=== PATIENT | female | born 1970 | race Caucasian/White ===

== ENCOUNTER 2019-06-28 23:03 | Emergency (ER) | payer BC, SELFPAY ==
--- NOTE | 2019-06-28 23:13 | ECG_ITS ---
Measurements Intervals [place]kins Rate: 69 P: 66 ID: [id number] QRS: 75 QRSD: 80 T: 61 QT: 402 QTc: 433 Interpretive Statements SINUS RHYTHM MINIMAL Q WAVES- INFERIOR LEADS BASELINE ARTIFACT- II, III, AVF BORDERLINE ECG Electronically Signed On 06-29-2019 7:03:47 [employer] by Abilio Mar D.O.
[2019-06-28 23:20] VITALS: BP 147/108; PULSE 70; RESP 18; TEMP 36.6; O2SAT 100
[2019-06-28] MEDS: ONDANSETRON HCL ODT 4 MG TABLET PO (23:38)
[2019-06-28 23:52] LABS: Hematocrit 36.7 % (35.0-49.0); Hemoglobin 12.1 g/dL (12.0-15.0); Mean Corpuscular Hemoglobin 26.4 pg (27.0-31.0); Mean Platelet Volume 9.6 fl (9.2-11.8); Platelet Count Result 337 K/mm3 (150-420); Red Blood Count 4.59 M/mm3 (4.20-5.40); Red Cell Distribution Width 17.2 % (11.6-14.4); White Blood Count 8.1 K/mm3 (4.8-10.8)
[2019-06-29] MEDS: SODIUM CHLORIDE 0.9% IV 500 ML 999 ML IV CONT (00:20)
[2019-06-29 00:31] LABS: Alanine Aminotransferase 30 U/L (14-59); Albumin Level 4.2 g/dL (3.4-5.0); Alkaline Phosphatase 46 U/L (46-116); Anion Gap 13.6 mmol/L (7-16); Aspartate Amino Transferase 24 U/L (15-37); Bilirubin,Total 0.6 mg/dL (0.00-1.00); Blood Urea Nitrogen 9 mg/dL (7-18); Calcium 8.9 mg/dL (8.5-10.1); Carbon Dioxide 25 mmol/L (21-32); Chloride 106 mmol/L (98-108); Estimated CRCL calculation 70 ml/min; Estimated Glomerular Filt Rate > 60; Glucose 92 mg/dL (70-99); Osmolality Calculated 290 mOsm/kg (285-295); Potassium 3.6 mmol/L (3.5-5.1); Sodium 141 mmol/L (136-145); Total Protein 7.3 g/dL (6.4-8.2)
[2019-06-29 00:32] LABS: Troponin I < 0.02 ng/mL (0.00-0.056)
[2019-06-29 00:45] LABS: Influenza Control Valid (Valid)
--- NOTE | 2019-06-29 00:51 | ED.CHESTPAIN ---
HPI - Chest Pain General Chief Complaint: Chest Pain Stated Complaint: Chest Pain Source: patient Mode of arrival: ambulatory Limitations: no limitations History of Present Illness HPI narrative: This is a 49-year-old female presents with some chest discomfort with epigastric pain and discomfort with an episode of nausea with no vomiting no abdominal pain no diarrhea or constipation. Patient has been having symptoms off and on and have become more intense this evening with a reproducible chest pain with palpation there, no diaphoresis no smoking history no family history of heart disease. MD complaint: chest discomfort Onset (ago): day(s) Timing of current episode: episodic Prior episodes: Yes Onset: during rest Pain location: epigastric Pain radiation: none Severity: mild Pain scale (0-10): 4 Quality: burning Relieving factors: nothing Exacerbating factors: nothing Associated symptoms: nausea Treatment prior to arrival: none Related Data Allergies Allergy/AdvReac Type Severity Reaction Status Date / Time No Known Allergies Allergy Verified 05/11/19 08:21 Review of Systems Review of Systems: All systems reviewed & are unremarkable except as noted in HPI and below PMFSH Past Medical History Medical History Anemia Carpal tunnel syndrome of left wrist Exam Const: General: no acute distress and alert Orientation/consciousness: patient oriented x3 HENMT: Head: normal to inspection Ears: TM abnormal Eyes: Conjunctivae: conjunctivae normal Pupils: Equal, round and reactive pupils present Neck: Neck: normal visual inspection Chest: Chest palpation & inspection: normal inspection of the chest Resp: Effort & Inspection: normal respiratory effort Auscultation: clear to auscultation bilaterally Cardio: Rate: regular rate Rhythm: regular rhythm GI: Inspection: distended Other: Epigastric tenderness with palpation : General: Yes no CVA tenderness Skin: General skin exam: normal color Rashes: no rashes Neuro: General: patient oriented x3 and moves all extremities Extrem: General: normal to inspection Course Vital Signs Vital signs: Vital Signs Temperature 36.6 C 06/28/19 23:20 Pulse Rate 70 06/28/19 23:20 Respiratory Rate 18 06/28/19 23:20 Blood Pressure 147/108 H 06/28/19 23:20 Pulse Oximetry 100 06/28/19 23:20 Temperature 36.6 C 06/28/19 23:20 Pulse Rate 70 06/28/19 23:20 Respiratory Rate 18 06/28/19 23:20 Blood Pressure 147/108 H 06/28/19 23:20 Pulse Oximetry 100 06/28/19 23:20 MDM - Chest Pain Lab Data Attestation: I reviewed the patient's lab results. Result diagrams: 06/28/19 23:29 06/28/19 23:29 Labs: Lab Results 06/28/19 06/28/19 06/29/19 Range/Units 23:29 23:29 00:17 WBC 8.1 (4.8-10.8) K/mm3 RBC 4.59 (4.20-5.40) M/mm3 Hgb 12.1 (12.0-15.0) g/dL Hct 36.7 (35.0-49.0) % MCV 80.0 (78.0-102.0) fL MCH 26.4 L (27.0-31.0) pg MCHC 33.0 (32.0-36.0) g/dL RDW 17.2 H (11.6-14.4) % Plt Count 337 (150-420) K/mm3 MPV 9.6 (9.2-11.8) fl Sodium 141 (136-145) mmol/L Potassium 3.6 (3.5-5.1) mmol/L Chloride 106 (98-108) mmol/L Carbon Dioxide 25 (21-32) mmol/L Anion Gap 13.6 (7-16) mmol/L BUN 9 (7-18) mg/dL Creatinine 0.85 (0.55-1.02) mg/dL Estim Creat Clear Calc 70 ml/min Estimated GFR > 60 (59 - ) Glucose 92 (70-99) mg/dL Calculated Osmolality 290 (285-295) mOsm/kg Calcium 8.9 (8.5-10.1) mg/dL Total Bilirubin 0.6 (0.00-1.00) mg/dL AST 24 (15-37) U/L ALT 30 (14-59) U/L Alkaline Phosphatase 46 (46-116) U/L Troponin I < 0.02 (0.00-0.056) ng/mL Total Protein 7.3 (6.4-8.2) g/dL Albumin 4.2 (3.4-5.0) g/dL Influenza Type A Ag Negative (Negative) Influenza Type B Ag Negative (Negative) ECG Data EKG #1: ECG
[2019-06-29 00:54] VITALS: BP 125/62; PULSE 72; RESP 18; O2SAT 97
== END 2019-06-29 01:02 | disposition home or self-care (01) ==
PROVIDERS: Emergency Provider Emergency Medicine; PCP Family Medicine
DX: R07.89 Other chest pain (principal); K21.9 Gastro-esophageal reflux disease without esophagitis
CPT/HCPCS: 36415; 80053; 84484; 85027; 87804; 93005; 99283; 99284; A9270; J7040

== ENCOUNTER 2020-04-19 14:15 | Emergency (ER) | payer BC, SELFPAY ==
[2020-04-19 14:25] VITALS: BP 143/88; PULSE 76; RESP 16; TEMP 36.7; O2SAT 99
[2020-04-19] MEDS: TETANUS,DIPHTHERIA,AC PERTUSSIS ADULT 0.5 ML (ADACEL) IM (14:40)
--- NOTE | 2020-04-19 14:53 | ED.WOUNDLAC ---
HPI - Wound/Laceration General Chief Complaint: Wound/Laceration Stated Complaint: L hand lac Source: patient Mode of arrival: ambulatory Limitations: no limitations History of Present Illness HPI narrative: Elizabet is a previously healthy 50F that presented to the ED with a laceration. She was cutting things off a [place] tree with scissors when she accidentally cut the webbing between the thumb and index finger of her left hand. She has no other concerns/injuries. Last Tdap was 8 years ago. Related Data Home Medications Medication Instructions Recorded Confirmed escitalopram oxalate 10 mg PO DAILY 04/19/20 04/19/20 Allergies Allergy/AdvReac Type Severity Reaction Status Date / Time No Known Allergies Allergy Verified 02/06/20 08:15 Review of Systems Constitutional: Constitutional: Reports no additional constitutional complaints Eyes: Eyes: Reports no additional eye complaints ENT: Reports system reviewed and no additional complaints, except as documented Cardiovascular: Cardiovascular: Reports no additional cardiovascular complaints Respiratory: Respiratory: Reports no additional respiratory complaints Gastrointestinal: Gastrointestinal: Reports no additional gastrointestinal complaints Genitourinary: Genitourinary: Reports no additional female genitourinary complaints Musculoskeletal: Musculoskeletal: Reports no additional musculoskeletal complaints Integumentary/Breasts: Skin/Breast: Reports as per HPI Neurologic: Reports system reviewed and no additional complaints, except as documented Psychiatric: Psychiatric: Reports no additional psychiatric complaints Endocrine: Endocrine: Reports no additional endocrine complaints Hematologic/Lymphatic: Hematologic/Lymphatic: Reports no additional hematologic/lymphatic complaints Allergic/Immunologic: Allergic/Immunologic: Reports no additional allergic/immunologic complaints [facility] Past Medical History Medical History Anemia Carpal tunnel syndrome of left wrist Exam Const: General: cooperative, healthy appearing and comfortable HENMT: Head: normal to inspection Eyes: General: appearance normal, both eyes and all related structures Neck: Neck: normal visual inspection Resp: Effort & Inspection: normal respiratory effort Cardio: Rate: regular rate Skin: General skin exam: normal color and no rashes or lesions noted Wounds: wounds noted (1cm laceration in the webbing between the 1st and 2nd digit of left hand ) Neuro: General: oriented to person, oriented to place and oriented to time Extrem: General: normal to inspection Psych: Appearance: grossly normal Course Course Emergency Course: Elizabet was evaluated and the wound was repaired as below. Vital Signs Vital signs: Vital Signs Temperature 98.1 F 04/19/20 14:25 Pulse Rate 76 04/19/20 14:25 Respiratory Rate 16 04/19/20 14:25 Blood Pressure 143/88 H 04/19/20 14:25 Pulse Oximetry 99 04/19/20 14:25 Temperature 98.1 F 04/19/20 14:25 Pulse Rate 76 04/19/20 14:25 Respiratory Rate 15 04/19/20 15:00 Blood Pressure 143/88 H 04/19/20 14:25 Pulse Oximetry 99 04/19/20 14:25 Procedures Laceration Laceration 1: Date: 04/19/20 Site: hand (webbing between 1st and 2nd digit of left hand ) Size (cm): 1 Description: linear Depth: simple, single layer Local Anesthetic: lidocaine 1% Amount of anesthesia used (mL): 2 Pre-repair: irrigated extensively ====== Skin Level ====== Skin layer closed with: nylon Size (cm): 4-0 Number of sutures: 2 ====== Subcutaneous Layer ====== ====== Muscle Layer ====== ====== Tendon Layer ====== Dressing: Bandaid Discharge Plan Discharge Clinical Impression: Laceration Patient Disposition: Home, Self-Care Condition: Stable Instructions: Care For Your
[2020-04-19 15:00] VITALS: RESP 15
== END 2020-04-19 15:00 | disposition home or self-care (01) ==
PROVIDERS: Emergency Provider Family Medicine; PCP Family Medicine
DX: S61.412A Laceration without foreign body of left hand, initial encounter (principal); W45.8XXA Other foreign body or object entering through skin, initial encounter
CPT/HCPCS: 12001; 90471; 90715; 99282

== ENCOUNTER 2024-02-08 11:36 | Outpatient (CLI) | payer BC, SELFPAY ==
[2024-02-08 11:50] LABS: Basophils Absolute Auto 0.05 K/mm3 (0.00-0.10); Basophils Percent Auto 0.8 % (0.0-1.0); Eosinophils Absolute Auto 0.09 K/mm3 (0.02-0.50); Eosinophils Percent Auto 1.5 % (1.0-6.0); Hematocrit 43.7 % (35.0-49.0); Immature Granulocyte Absolute 0.01 K/mm3 (0.00-0.00); Immature Granulocyte Percent A 0.2 % (0.0-0.0); Lymphocytes Absolute Auto 2.42 K/mm3 (1.10-4.50); Lymphocytes Percent Auto 40.1 % (18.0-42.0); Mean Corpuscular HGB Conc 34.3 g/dL (32-36); Mean Corpuscular Hemoglobin 29.8 pg (27.0-31.0); Mean Corpuscular Volume 86.7 fL (78.0-102.0); Mean Platelet Volume 9.1 fl (9.2-11.8); Monocytes Absolute Auto 0.44 K/mm3 (0.10-0.90); Monocytes Percent Auto 7.3 % (2.0-11.0); Neutrophils Absolute Auto 3.03 K/mm3 (1.70-7.20); Neutrophils Percent Auto 50.1 % (50.0-70.0); Platelet Count Result 307 K/mm3 (150-420); Red Blood Count 5.04 M/mm3 (4.20-5.40); Red Cell Distribution Width 11.7 % (11.6-14.4)
[2024-02-08 12:49] LABS: Alanine Aminotransferase 70 U/L (14-59); Albumin Level 4.5 g/dL (3.4-5.0); Alkaline Phosphatase 91 U/L (46-116); Anion Gap 7 mmol/L (4-12); Aspartate Amino Transferase 35 U/L (15-37); Bilirubin,Total 0.8 mg/dL (0.00-1.00); Blood Urea Nitrogen 15 mg/dL (7-18); Calcium 9.4 mg/dL (8.5-10.1); Carbon Dioxide 31 mmol/L (21-32); Chloride 102 mmol/L (98-108); Cholesterol 198 mg/dL (0-200); Estimated Glomerular Filt Rate 60; Free T4 Free Thyroxine 0.93 ng/dL (0.76-1.46); Glucose 97 mg/dL (70-99); HDL Direct 40 mg/dL (40-60); LDL Cholesterol Calculated 133 mg/dL (<130); Osmolality Calculated 290 mOsm/kg (285-295); Potassium 4.5 mmol/L (3.5-5.1); Sodium 140 mmol/L (136-145); Thyroid Stimulating Hormone 1.69 uIU/mL (0.36-3.74); Total Protein 7.4 g/dL (6.4-8.2); Triglycerides 126 mg/dL (0-150)
== END 2024-02-08 11:37 | disposition home or self-care (01) ==
LOC: CHSLAB 11:40
PROVIDERS: PCP Nurse Practitioner Family; Visit Provider Nurse Practitioner Family
DX: I10 Essential (primary) hypertension (principal); Z86.39 Personal history of other endocrine, nutritional and metabolic disease
CPT/HCPCS: 36415; 80053; 80061; 84439; 84443; 85025

== ENCOUNTER 2024-08-13 07:51 | Outpatient (CLI) | payer BC, SELFPAY ==
--- NOTE | ~2024-08-13 | US_ITS ---
COMPLETE ABDOMINAL ULTRASOUND Ordering provider: Marcela Hidalgo NP History: . R10.11 - Right upper quadrant pain . Comparison: None. FINDINGS: LIVER: Normal size and increased echotexture. No perihepatic fluid collections identified. Hypoechoi c areas seen in the right lobe which shows color flow. GALLBLADDER: Surgically removed. BILIARY DUCTS: No evidence for intra or extrahepatic biliary dilation. Common bile duct measures 2.8 mm in diameter which is within normal limits. PANCREAS: Normal echotexture and size. SPLEEN: Normal size, echotexture and contour and measures 10.8 cm in length. KIDNEYS: Right measures 9.3x 4.8x 4.3 cm in length and the left 11.6x 5.3x 4.6 cm in length. There is no evidence for hydronephrosis, solid renal mass, or perinephric fluid collections. No renal cysts. 6.7x 4.6x 8.2 mm Stone is seen in the right kidney UPPER ABDOMINAL AORTA: Normal in caliber. IVC: Patent. FREE FLUID: None. IMPRESSION: Fat infiltration of the liver. Hypoechoic area in the right lobe of the liver with color flow which may be a fat sparing area but fu rther evaluation with CT is advised to exclude a mass lesion although this less likely. Right kidney stone Reviewed, dictated and finalized at location A. IMPRESSION: Fat infiltration of the liver. Hypoechoic area in the right lobe of the liver with color flow which may be a f at sparing area but further evaluation with CT is advised to exclude a mass les ion although this less likely. Right kidney stone
--- OUTSIDE RECORDS SUMMARY | 2024-08-13 07:57 | XMS_ITS | Clinical Summary ---
Author Organization [facility] Address [address] [place] [id number] Care Team Providers Care Planning Intern Name Role Phone Albaro Person MD Primary Care Provider [phone] Allergies No known active allergies Family History Medical History Relation Comments Hypertension Father Cancer Mother Relation Status Comments Father Mother Social History Tobacco Use Types Packs/Day Years Used Date Smoking Tobacco: Never Smokeless Tobacco: Never Alcohol Use Standard Drinks/Week Comments Yes 0 (1 standard drink = 0.6 oz pur e alcohol) occassional Comments No Sex and Gender Information Value Date Recorded Sex Assigned at Not on file Legal Sex Female 1:26 AM CDT Gender Identity Not on file Sexual Orientation Not on file Last Filed Vital Signs Vital Sign Reading Time Taken Comments Blood Pressure 103/66 02/04/2019 3:15 PM CDT Pulse 74 02/04/2019 3:15 PM CDT Temperature 36 C (96.8 F) 02/04/2019 1:00 PM CDT Respiratory Rate 14 02/04/2019 3:15 PM CDT Oxygen Saturation 99% 02/04/2019 3:15 PM CDT Inhaled Oxygen Concentration - - Weight 78.9 kg (174 lb) 02/04/2019 1:00 PM CDT Height 170.2 cm (5' 7 ) 02/04/2019 1:00 PM CDT Body Mass Index 27.25 02/04/2019 1:00 PM CDT Plan of Treatment Health Maintenance Due Date Last Done Comments Cervical Cancer Screening Pap Smear (Age 30 to 64) Every 3 Years 1972 Colorectal Cancer Screening Colonoscopy (10 Years) 1972 Annual Physical 01/17/1975 Hepatitis C 01/17/1990 DTaP, Tdap and Td Vaccines (1 - Tdap) 01/17/1991 Hepatitis B Vaccines (1 of 3 - 19+ 3-dose series) 01/17/1991 Cervical Cancer Screening Pap with HPV Testing (Age 30 to 64) Every 5 Years 01/17/2002 Cervical Cancer Screening with HPV 01/17/2002 Zoster Vaccines (1 of 2) 01/17/2022 COVID-19 Vaccine ( season) 2024 Influenza Adult (#1) 2024 Mammogram Screening 09/11/2025 09/12/2023, 07/27/2022, 06/26/2021, Additional history exists Meningococcal B Vaccine Aged Out No l onger eligible based on patient's age to complete this topic Meningococcal Vaccine Aged Out No ezequiel irving eligible based on patient's age to complete this topic Pneumococcal Vaccine: Pediatrics (0 to 5 Years) and At-Risk Patients (6 to 64 Years) Aged Out No longer eligible based on patient's age to complete this topic RSV Immunizations Under 20 Months Aged Out No longer eligible based on patient's age to complete this topic Procedures Procedure Name Priority Date/Time Associated Diagnosis Comments MG SCREENING W PABLO JAM DIGI Routine 09/12/2023 3:06 PM CDT Encounter for screening mammogram for malignant neoplasm of breast from Last 3 Months or Most Recently Relevant to Health Maintenance Results * MG SCREENING W PABLO JAM DIGI (09/12/2023 3:06 PM CDT) Anatomical Region Laterality Modality Breast Bilateral Mammography 09/12/2023 4:00 PM CDT Impressions 09/12/2023 4:01 PM CDT IMPRESSION: No suspicious change since the previous exams. Recommendation: 1: Routine Screening Bilateral in 1 Year Assessment: ACR BI-RADS 2 - BENIGN FINDING(S) Ordered By: ALBARO PERSON Interpreted By: Zaid Herrera MD, 09/12/2023 4:00 PM Narrative 09/12/2023 4:01 PM CDT Examination: Digital screening mammogram with CAD. Clinical history: Asymptomatic patient presents for routine screening. Comparison: 07/27/2022, 06/26/2021, 06/06/2020, 05/15/2019. Technique: Bilateral digital mammograms. The exam was interpreted with the use of a computer-aided detection (CAD) system. Additional 3-D tomosynthesis images were acquired. Tissue density: The breast tissue is heterogeneously dense. Findings: The breast tissue is heterogeneously dense. The dense tissue may obscure some lesions mammographically. Benign-appearing calcification noted. No suspicious mass, microcalcification or area of architectural distortion can be identified. From a mammographic standpoint, routine followup in one year would seem adequate. us Albaro Person MD MAMMO Final Resul t from Last 3 Months or Most Recently Relevant to Health Maintenance [place] [address] [place] [address] Care Teams Planning Intern Relationship Specialty Start Date End Date Albaro Person MD [address] [place] [phone] PCP - General FAMILY PRACTICE 06/06/20
== END 2024-08-13 07:52 | disposition home or self-care (01) ==
LOC: CHSIMG 07:52
PROVIDERS: PCP Family Medicine; Visit Provider Nurse Practitioner Family
DX: R10.11 Right upper quadrant pain (principal); K76.0 Fatty (change of) liver, not elsewhere classified; N20.0 Calculus of kidney; R93.2 Abnormal findings on diagnostic imaging of liver and biliary tract
CPT/HCPCS: 76700

== ENCOUNTER 2024-08-20 07:54 | Outpatient (CLI) | payer BC, SELFPAY ==
--- NOTE | ~2024-08-20 | CT_ITS ---
CT of the Abdomen: Indication: Right upper quadrant fullness Technique: 2.5 mm axial scans were obtained through the abdomen following intravenous administration of 100 cc of Omnipaque 350. Dose reduction technique was used on this scan by utilizing automated ex posure control and iterative reconstruction technique. The dose-length product (DLP) was 285.10 mGy-c m. Findings: Scans through the lung bases are unremarkable. There is diffuse hepatic steatosis. Cholecystectomy clips are present. The spleen, pancreas, adrenals and left kidney are within normal limits. 8 mm ovoid nonobstructing right renal stone present. No ev idence of aortic aneurysm. No lymphadenopathy. Visualized bowel loops are unremarkable. No ascites Impression: No acute abnormality or mass lesion. Diffuse hepatic steatosis. 8 mm nonobstructing right renal stone. Reviewed, dictated and finalized at location M. Impression: No acute abnormality or mass lesion. Diffuse hepatic steatosis. 8 mm nonobstructing right renal stone.
--- OUTSIDE RECORDS SUMMARY | 2024-08-20 07:59 | XMS_ITS | Clinical Summary ---
Author Organization [facility] Address [address] [place] [address] Care Team Providers Care Heel Finisher Name Role Phone Albaro Person MD Primary Care Provider Allergies No known active allergies Family History [...] Most Recently Relevant to Health Maintenance [place] [address] [address] Care Teams Heel Finisher Relationship Specialty Start Date End Date Albaro Person MD [address] [place] [phone] PCP - General FAMILY PRACTICE 06/06/20
[2024-08-20 08:19] LABS: Estimated Glomerular Filt Rate 53
== END 2024-08-20 07:55 | disposition home or self-care (01) ==
LOC: CHSIMG 07:54
PROVIDERS: PCP Family Medicine; Visit Provider Nurse Practitioner Family
DX: R93.2 Abnormal findings on diagnostic imaging of liver and biliary tract (principal); R93.5 Abnormal findings on diagnostic imaging of other abdominal regions, including retroperitoneum; N20.0 Calculus of kidney; K76.0 Fatty (change of) liver, not elsewhere classified
CPT/HCPCS: 74160; Q9967

== ENCOUNTER 2025-03-04 07:17 | Outpatient (CLI) | payer BC, SELFPAY ==
--- NOTE | ~2025-03-04 | US_ITS ---
EXAMINATION: US retroperitoneal comp DATE: 03/04/2025 07:42 INDICATION: Nephrolithiasis. TECHNIQUE: Multiple ultrasound grayscale images of the kidneys were obtained. COMPARISON: CT 08/20/2024 FINDINGS: The right kidney measures 11.2 x 5.5 x 4.8 cm. The left kidney measures 11.7 x 5.0 x 4.7 cm. The kidneys demonstrate normal parenchymal echogenicity. There is no hydronephrosis. The bladder is normal. IMPRESSION: 1. Normal kidneys. No hydronephrosis. Reviewed, dictated and finalized at location E.
--- NOTE | ~2025-03-04 | XR_ITS ---
XR abdomen/kub 1V INDICATION: nephrolithiasis REFERENCE: NONE FINDINGS: A supine view of the abdomen is submitted. The bowel gas pattern is nonobstructive. No free air is identified. Osseous structures are intact. Questionable 9 mm stone is seen projecting over the midpole of the left kidney. IMPRESSION: Nonobstructive bowel gas pattern. Requests both 9 mm left renal stone. Reviewed, dictated and finalized at location S.
--- OUTSIDE RECORDS SUMMARY | 2025-03-04 07:20 | XMS_ITS | Clinical Summary ---
Author Organization [facility] Address [facility] [place] [address] Care Team Providers Care Chief Supply Chain Officer Name Role Phone Albaro Bishop MD Primary Care Provider [phone] Allergies No known active allergies Encounters Date Type Department Care Team Description 01/09/2025 2:49 PM CDT - 01/09/2025 11:59 PM CDT Hospital Encounter [facility] [address] [facility] [place] [address] William Mancini MD Discharge Disposition: Home or Self Care (Routine Discharge) 01/09/2025 Travel from Last 3 Months Family History Medical History Relation Comments Hypertension Father Cancer Mother Relation Status Comments Father Mother Social History Tobacco Use Types Packs/Day Years Used Date Smoking Tobacco: Never Smokeless Tobacco: Never Alcohol Use Standard Drinks/Week Comments Yes 0 (1 standard drink = 0.6 oz pur e alcohol) occassional Comments No Sex and Gender Information Value Date Recorded Sex Assigned at Female 01/09/2025 2:48 PM CDT Legal Sex Female 1:26 AM CDT Gender [...] 1:00 PM CDT Height 170.2 cm (5' 7) 02/04/2019 1:00 PM CDT Body Mass Index [...] 01/17/2002 Cervical Cancer Screening with HPV 01/17/2002 Pneumococcal Vaccine: 50+ Years (1 of 1 - PCV) 01/17/2022 Zoster Vaccines (1 of 2) 01/17/2022 COVID-19 Vaccine (1 - season) 2025 Influenza Adult (#1) 2025 03/09/2019, 03/08/2018, 03/05/2017, Additional history exists Mammogram Screening 01/09/2027 01/09/2025, 09/12/2023, 07/27/2022, Additional history exists Meningococcal B Vaccine Aged [...] MG SCREENING W PABLO JAM DIGI Routine 01/09/2025 3:57 PM CDT Visit for screening mammogram from Last 3 Months Results * MG SCREENING W PABLO JAM DIGI (01/09/2025 3:57 PM CDT) Anatomical Region Laterality Modality Breast Bilateral Mammography 01/09/2025 3:31 PM CDT Impressions 01/09/2025 3:31 PM CDT IMPRESSION: No suspicious change since the previous exams. Recommendation: 1: Routine Screening Bilateral in 1 Year Assessment: ACR BI-RADS 2 - BENIGN FINDING(S) Ordered By: WILLIAM MANCINI Interpreted By: Zaid Herrera MD, 01/09/2025 3:31 PM Narrative 01/09/2025 3:31 PM CDT [address] [place] [address] Examination: Digital screening mammogram with CAD. Clinical history: Asymptomatic patient presents for routine screening. Comparison: 09/12/2023, 07/27/2022, 06/26/2021, 06/06/2020. Technique: Bilateral digital mammograms. The exam was interpreted with the use of a computer-aided detection (CAD) system. Additional 3-D tomosynthesis images were acquired. Tissue density: The breasts are heterogeneously dense which may obscure small masses. Findings: The breast tissue is heterogeneously dense. The dense tissue may obscure some lesions mammographically. Benign-appearing calcification noted. No suspicious mass, microcalcification or area of architectural distortion can be identified. From a mammographic standpoint, routine followup in one year would seem adequate. us William Mancini MD MAMMO Final Result from Last 3 Months Insurance [facility] Care Teams Chief Supply Chain Officer Relationship Specialty Start Date End Date Albaro Bishop MD [address] [place] [phone] PCP - General FAMILY PRACTICE 06/06/20
== END 2025-03-04 07:18 | disposition home or self-care (01) ==
PROVIDERS: PCP Family Medicine; Visit Provider Urology
DX: N20.0 Calculus of kidney (principal)
CPT/HCPCS: 74018; 76770

== ENCOUNTER 2025-03-09 08:01 | Outpatient (CLI) | payer BC, SELFPAY ==
--- OUTSIDE RECORDS SUMMARY | 2025-03-09 08:05 | XMS_ITS | Clinical Summary ---
Author Organization [facility] Address [facility] [place] [address] Care Team Providers Care Restaurant Delivery Driver Name Role Phone Albaro Bishop MD Primary Care Provider Allergies No known active allergies Encounters Date Type Department Care Team Description 01/09/2025 2:49 PM CDT - 01/09/2025 11:59 PM CDT Hospital Encounter [facility] [address] [facility] [place] [address] William Mancini MD Discharge Disposition: Home or [...] 01/09/2027 01/09/2025, 09/12/2023, 07/27/2022, Additional history exists Hepatitis A Vaccines Aged Out No long er eligible based on patient's age to complete this topic Meningococcal B Vaccine Aged Out No l [...] 3:31 PM Narrative 01/09/2025 3:31 PM [address] [place] [address] Examination: Digital screening mammogram with CAD. Clinical [...] Final Result from Last 3 Months Insurance [facility] Care Teams Restaurant Delivery Driver Relationship Specialty Start Date End Date Albaro Bishop MD [address] [place] [phone] PCP - General FAMILY PRACTICE 06/06/20
[2025-03-09 09:02] LABS: Hematocrit 43.3 % (35.0-49.0); Hemoglobin 14.6 g/dL (12.0-15.0); Immature Granulocyte Percent A 0.3 % (0.0-0.0); Lymphocytes Absolute Auto 2.26 K/mm3 (1.10-4.50); Mean Corpuscular HGB Conc 33.7 g/dL (32-36); Mean Corpuscular Hemoglobin 29.6 pg (27.0-31.0); Mean Corpuscular Volume 87.8 fL (78.0-102.0); Nucleated Red Blood Cells Absolute Auto 0.00 K/mm3 (0.00-0.00); Nucleated Red Blood Cells Perc 0.0 % (0-0.0); Platelet Count Result 314 K/mm3 (150-420); Red Blood Count 4.93 M/mm3 (4.20-5.40); White Blood Count 7.2 K/mm3 (4.8-10.8)
[2025-03-09 09:18] LABS: Alanine Aminotransferase 46 U/L (6-35); Albumin Level 4.9 g/dL (3.5-5.1); Alkaline Phosphatase 57 U/L (38-126); Anion Gap 10 mmol/L (4-12); Aspartate Amino Transferase 41 U/L (14-36); Bilirubin,Total 1.2 mg/dL (0.2-1.3); Blood Urea Nitrogen 13 mg/dL (7-17); Calcium 9.8 mg/dL (8.4-10.2); Carbon Dioxide 27 mmol/L (22-30); Chloride 106 mmol/L (98-107); Cholesterol 205 mg/dL (0-200); Estimated Glomerular Filt Rate > 60; Glucose 106 mg/dL (65-110); HDL Direct 49 mg/dL; Osmolality Calculated 296 mOsm/kg (285-295); Potassium 4.4 mmol/L (3.4-5.0); Sodium 143 mmol/L (137-145); Total Protein 7.7 g/dL (6.3-8.2); Triglycerides 136 mg/dL (<150)
[2025-03-09 13:30] LABS: Hemoglobin A1C 5.9 % (<5.7)
[2025-03-09 14:18] LABS: Thyroid Stimulating Hormone Reflex 2.390 uIU/mL (0.465-4.68)
== END 2025-03-09 08:02 | disposition home or self-care (01) ==
LOC: CHSLAB 08:02
PROVIDERS: PCP Nurse Practitioner Family; Visit Provider Nurse Practitioner Family
DX: Z00.00 Encounter for general adult medical examination without abnormal findings (principal); R93.5 Abnormal findings on diagnostic imaging of other abdominal regions, including retroperitoneum; R73.09 Other abnormal glucose; E78.5 Hyperlipidemia, unspecified
CPT/HCPCS: 36415; 80053; 80061; 83036; 84443; 85025